=== PATIENT | male | born 1960 | race Caucasian/White ===

== ENCOUNTER 2023-12-02 13:06 | Outpatient (CLI) | payer OTHER ==
[2023-12-02 13:55] LABS: CALCIUM 10.2 mg/dL (8.5-10.3); CREATININE 0.9 mg/dL (0.6-1.3); POTASSIUM 4.2 mmol/L (3.5-4.5)
[2023-12-02 14:03] LABS: THYROID STIMULATING HORMONE 0.91 uIU/mL (0.34-5.60)
== END 2023-12-02 13:07 | disposition home or self-care (01) ==
LOC: LAB 13:06
PROVIDERS: ATTEND Internal Medicine Hematology & Oncology
DX: I48.92 Unspecified atrial flutter (principal); I50.21 Acute systolic (congestive) heart failure
CPT/HCPCS: 36415; 80048; 84443

== ENCOUNTER 2023-12-02 13:20 | Emergency (ER) | payer OTHER ==
--- NOTE | 2023-12-02 14:03 | ED Physician Documentation ---
PD HPI CHEST PAIN - Stated complaint Stated Complaint: CHEST PX - Chief complaint Chief Complaint: Cardiac - Additional information Additional information: 63-year-old male was recently discharged from [facility] on Saturday for heart failure and A-fib. He was started on Xarelto has not missed any doses of this he was also diuresed and is still on diuretics as well as beta-sarath. He went for a couple hikes this weekend and says that he has been having a hard time getting his heart rate under control Feroz sent to his primary care doctor a secure chat to let them know about the elevated heart rate and his facing machine operator from [facility] told him present to the nearest emergency department for further evaluation. Patient denies any chest pain but says that he continues to have high heart rate up to the 130s 140s despite taking all prescribed medications. PD PAST MEDICAL HISTORY - Past Medical History Past Medical History: Yes Cardiovascular: Atrial fibrillation, Arrhythmia - Past Surgical History Past Surgical History: No - Present Medications Home Medications: Ambulatory Orders Medication Instructions Recorded Confirmed Acetaminophen [Tylenol] 1 tab PO PRN PRN 12/02/23 12/02/23 Empagliflozin [Jardiance] 1 tab PO DAILY 12/02/23 12/02/23 Furosemide [Lasix] 1 tab PO DAILY 12/02/23 12/02/23 Losartan [Cozaar] 1 tab PO DAILY 12/02/23 12/02/23 Metoprolol Succinate [Toprol Xl] 1 tab PO DAILY 12/02/23 12/02/23 Rivaroxaban [Xarelto] 1 tab PO DAILY 12/02/23 12/02/23 Rosuvastatin Calcium [Crestor] 1 tab PO DAILY 12/02/23 12/02/23 Spironolactone [Aldactone] 1 tab PO DAILY 12/02/23 12/02/23 - Allergies Allergies/Adverse Reactions: Allergies Allergy/AdvReac Type Severity Reaction Status Date / Time No Known Drug Allergies Allergy Verified 12/02/23 13:31 - Social History Does the pt smoke?: No Smoking Status: Current some day smoker Does the pt drink ETOH?: No Does the pt have substance abuse?: No - Immunizations Immunizations are current?: No - POLST Patient has POLST: No PD ED PE NORMAL - Vitals Vital signs reviewed: Yes - General General: Alert and oriented X 3, No acute distress, Well developed/nourished - HEENT HEENT: Atraumatic, PERRL, EOMI - Neck Neck: Supple, no meningeal sign - Cardiac Cardiac: Other (irregularly irregular) - Respiratory Respiratory: No respiratory distress, Clear bilaterally - Abdomen Abdomen: Normal bowel sounds, Soft, Non tender, No organomegaly - Derm Derm: Normal color, Warm and dry, No rash - Extremities Extremities: No edema, No calf tenderness / cord - Neuro Neuro: Alert and oriented X 3, photographic restorer 2-12 intact, No motor deficit, No sensory deficit, Normal speech Eye Opening: Spontaneous Motor: Obeys Commands Verbal: Oriented GCS Score: 15 - Psych Psych: Normal mood, Normal affect Results - Vitals Vitals: Vital Signs - 24 hr 12/02/23 12/02/23 12/02/23 13:31 14:24 14:35 Temperature 36.8 C Heart Rate 136 H 138 H 138 H Respiratory 16 12 Rate Blood Pressure 130/88 H 113/83 H 87/75 L O2 Saturation 98 95 If not protocol : Oxygen Flow, liters/minute 12/02/23 12/02/23 12/02/23 14:40 14:45 14:50 Temperature Heart Rate 70 75 72 Respiratory Rate Blood Pressure 89/66 L 95/74 89/65 L O2 Saturation If not protocol : Oxygen Flow, liters/minute 12/02/23 12/02/23 12/02/23 15:05 15:20 15:35 Temperature Heart Rate 81 102 H 94 Respiratory 17 Rate Blood Pressure 109/63 107/91 H 124/67 O2 Saturation 95 If not protocol : Oxygen Flow, liters/minute 12/02/23 12/02/23 12/02/23 17:00 18:04 19:18 Temperature Heart Rate 133 H 132 H 130 H Respiratory 22 13 18 Rate Blood Pressure 103/72 117/97 H 137/117 H O2 Saturation 99 98 If not protocol : Oxygen Flow, liters/minute 12/02/23 20:52 Temperature Heart Rate 132 H Respiratory 16 Rate Blood Pressure 138/104 H O2 Saturation If not protocol 98 : Oxygen Flow, liters/minute Oxygen O2 Source Room air - EKG (time done) 1339 EKG releavant findings:: EKG personally interpreted by author of this note. Relevant findings are: Rate: Rate (enter#) (138) Rhythm: Atrial flutter [place]: Normal Intervals: Normal [place] QRS: Normal Ischemia: Other (non specific T-wave abnormalities to the lateral leads) 1443 EKG releavant findings:: EKG personally interpreted by author of this note. Relevant findings are: Rate: Rate (enter#) (90) Rhythm: Atrial flutter (3:1 AV block) [place]: Normal Intervals: Normal [place] QRS: Normal Ischemia: Other (non-specific T abnormalities to anterior lead) Computer interpretation: Agree with computer - Labs Labs: Laboratory Tests 12/02/23 12/02/23 12/02/23 14:15 14:15 14:15 WBC 7.3 RBC 5.82 Hgb 17.7 Hct 53.6 H MCV 92.1 MCH 30.4 MCHC 33.0 RDW 13.6 Plt Count 239 MPV 9.4 Neut # (Auto) 4.4 Lymph # (Auto) 1.7 [place] # (Auto) 1.1 H Eos # (Auto) 0.1 Baso # (Auto) 0.1 Absolute Nucleated RBC 0.00 Nucleated RBC % 0.0 Sodium 137 Potassium 4.2 Chloride 106 Carbon Dioxide 26 Anion Gap 5.0 L BUN 18 Creatinine 0.8 Estimated GFR (MDRD) 98 Glucose 98 Calcium 9.9 Magnesium 1.8 Total Bilirubin 0.8 AST 36 ALT 54 Alkaline Phosphatase 72 Troponin I High Sens 23.5 H* B-Natriuretic Peptide Total Protein 7.5 Albumin 4.2 Globulin 3.3 Albumin/Globulin Ratio 1.3 Lipase 25 12/02/23 12/02/23 14:15 15:58 WBC RBC Hgb Hct MCV MCH MCHC RDW Plt Count MPV Neut # (Auto) Lymph # (Auto) [place] # (Auto) Eos # (Auto) Baso # (Auto) Absolute Nucleated RBC Nucleated RBC % Sodium Potassium Chloride Carbon Dioxide Anion Gap BUN Creatinine Estimated GFR (MDRD) Glucose Calcium Magnesium Total Bilirubin AST ALT Alkaline Phosphatase Troponin I High Sens 22.8 H* B-Natriuretic Peptide 791 H Total Protein Albumin Globulin Albumin/Globulin Ratio Lipase - Rads (name of study) chest Xray Relevant Findings:: Final report received, EMP independent interpretation of test, Other (No acute cardiopulmonary abnormalities or findings) PD Medical Decision Making - ED course ED course: 63-year-old male presents emergency department for increased heart rate. Patient says that he has no new symptoms no new leg swelling no chest pain no shortness of breath. Labs are complete for further evaluation and he has no leukocytosis no anemia. BNP was slightly elevated at 791 but unsure what his BNP was last time he was seen at the hospital. He says that he has not missed any of his medications that he was prescribed from [facility]. Initial troponin came back slightly elevated as well at 2 23.5, repeat troponin was checked couple hours after and it was found to be 22.8. EKG showed that patient was in A-fib with RVR heart rate was around 130s 140s. We were able to get his rate controlled after 1 dose of 10 mg IV diltiazem, heart rate dropped down to the 90s. But remained in A-fib. I then spoke with [facility] facing machine operator group that patient is established with Dr. Liang and he recommended giving patient a one-time p.o. dose of metoprolol succinate 50 mg and a one-time dose of IV digoxin 250 mcg. At this point in time it appears that the IV diltiazem had worn off and heart rate came back up to the 130s. Dr. Ponce believes that patient would benefit from checking back into [facility] to be established with cardiology for rate control and possible cardioversion and medication adjustment. While we are waiting for [facility] for bed to become available and transfer patient there he said that he wanted to check out AGAINST MEDICAL ADVICE and would like to drive himself to [facility] ER and check himself in that way. Patient was informed that if he chooses to do so there is a risk of or lifelong disability he said that he has a pulse ox as well as a blood pressure monitor that he will be utilizing and route to the hospital he says he feels very stable he denies any chest pain or shortness of breath and said that this is the risk he is willing to take. He signed out AMA and said that his uncle will be driving him to [facility] emergency department. Departure - Departure Disposition: Against Medical Advice Clinical Impression: Atrial fibrillation with RVR Instructions: ED Afib Comments: You are choosing to leave AGAINST MEDICAL ADVICE we have offered to wait for you to speak with [facility] transfer center to wait for confirmation of a bed but you are choosing to leave AGAINST MEDICAL ADVICE willingly unknowingly that you will be starting this process over again at the [facility] emergency department. If you start to develop shortness of breath or chest pain or any change in vital signs extractor puller and call 911 immediately. If you decide to change your mind please present back to this emergency department for further support and evaluation. Forms: PCP List Discharge Date/Time: 12/02/23 20:59
[2023-12-02 14:21] LABS: BASOPHILS # (AUTO) 0.1 10^3/uL (0.0-0.1); BASOPHILS % (AUTO) 0.7 %; EOSINOPHILS # (AUTO) 0.1 10^3/uL (0.0-0.7); EOSINOPHILS % (AUTO) 0.8 %; HCT - HEMATOCRIT 53.6 % (42.0-52.0); HGB - HEMOGLOBIN 17.7 g/dL (14.0-18.0); LYMPHOCYTES # (AUTO) 1.7 10^3/uL (1.5-3.5); LYMPHOCYTES % (AUTO) 23.7 %; MEAN CORPUSCULAR HEMOGLOBIN 30.4 pg (27.0-31.0); MEAN CORPUSCULAR VOLUME 92.1 fL (80.0-94.0); MEAN PLATELET VOLUME 9.4 fL (7.4-11.4); MONOCYTES # (AUTO) 1.1 10^3/uL (0.0-1.0); MONOCYTES % (AUTO) 14.6 %; NEUTROPHILS # (AUTO) 4.4 10^3/uL (1.5-6.6); NEUTROPHILS % (AUTO) 60.1 %; PLT - PLATELET COUNT 239 10^3/uL (130-450); RED BLOOD COUNT 5.82 10^6/uL (4.70-6.10); RED CELL DISTRIBUTION WIDTH 13.6 % (12.0-15.0); WHITE BLOOD COUNT 7.3 x10^3/uL (4.8-10.8)
[2023-12-02] MEDS: diltiaZEM INJ 5 MG/ML VIAL IVP STA ×2 (14:30→20:56)
[2023-12-02 14:39] LABS: ALBUMIN 4.2 g/dL (3.2-5.5); ALBUMIN/GLOBULIN RATIO 1.3 (1.0-2.2); BILIRUBIN,TOTAL 0.8 mg/dL (0.2-1.0); CALCIUM 9.9 mg/dL (8.5-10.3); CREATININE 0.8 mg/dL (0.6-1.3); POTASSIUM 4.2 mmol/L (3.5-4.5); TOTAL PROTEIN 7.5 g/dL (6.4-8.9)
[2023-12-02 14:45] LABS: TROPONIN I HIGH SENSITIVITY 23.5 ng/L (2.3-19.7)
[2023-12-02] MEDS: ASPIRIN CHEW 81 MG TABLET PO STA (15:28)
[2023-12-02] MEDS: SODIUM CHLORIDE 0.9% 1,000 ML IV ONE (15:51)
[2023-12-02] MEDS: ACETAMINOPHEN 500 MG TABLET PO STA (15:51)
--- NOTE | 2023-12-02 16:03 | XRAY Report ---
PROCEDURE: Chest 1V INDICATIONS: Chest Pain TECHNIQUE: One view of the chest was acquired. COMPARISON: None. FINDINGS: Surgical changes and devices: None. Lungs and pleura: No pleural effusions or pneumothorax. Lungs are clear. Mediastinum: Mediastinal contours appear normal. Heart size is normal. Bones and chest wall: No suspicious bony lesions. Overlying soft tissues appear unremarkable. IMPRESSION: No acute cardiopulmonary process. Reviewed by: Edilberto Guzmán MD on 12/02/2023 4:02 PM PDT Approved by: Edilberto Guzmán MD on 12/02/2023 4:02 PM PDT Station ID: [id number]
[2023-12-02] MEDS: DIGOXIN 500 MCG/2 ML AMP IVP STA (18:04)
[2023-12-02] MEDS: METOPROLOL SUCCINATE 50 MG TABLET PO STA (18:06)
[2023-12-02 18:07] VITALS: O2SAT 98
[2023-12-02 21:03] VITALS: BP 138/104
== END 2023-12-02 20:59 | disposition left against medical advice (07) ==
LOC: ED 13:20
DX: I48.20 Chronic atrial fibrillation, unspecified (principal); Z53.29 Procedure and treatment not carried out because of patient's decision for other reasons; I48.92 Unspecified atrial flutter; I50.21 Acute systolic (congestive) heart failure; Z79.01 Long term (current) use of anticoagulants; Z79.899 Other long term (current) drug therapy; F17.200 Nicotine dependence, unspecified, uncomplicated
CPT/HCPCS: 36415; 71045; 80048; 80053; 83690; 83735; 83880; 84443; 84484; 85025; 93005; 96361; 96374; 96375; 99284; 99285; A9270